=== PATIENT | male | born 1990 | race Hispanic/Latino ===

== ENCOUNTER 2017-03-27 14:08 | Outpatient (CLI) | payer OTHER | END 2017-03-27 14:09 | disposition home or self-care (01) | LOC: HPCALD 14:08 | PROVIDERS: ATTEND Physician Assistant | DX: L03.115 Cellulitis of right lower limb (principal) | CPT/HCPCS: 87070; 87205 ==

== ENCOUNTER 2020-11-24 11:15 | Emergency (ER) | payer OTHER ==
[2020-11-24 11:55] LABS: #Basophils 0.1 thou/uL (0.0-0.2); #Lymphocytes 0.9 thou/uL (1.20-3.40); #Monocytes 0.6 thou/uL (0.11-0.59); #Neutrophils 5.5 thou/uL (1.40-6.50); %Basophils 0.8 % (0.0-1.0); %Eosinophils 0.7 % (0.0-10.0); %Lymphocytes 13.3 % (21.0-51.0); %Neutrophils 77.2 % (42.0-75.0); Hemoglobin 16.9 g/dL (14.0-18.0); Mean Corpuscular HGB CONC 33.5 g/dL (32.0-36.0); Mean Corpuscular Hemoglobin 28.9 pg (27.0-31.0); Mean Corpuscular Volume 86.4 fL (78.0-98.0); Platelet Count 141 thou/uL (130-400); RBC Distribution Width 11.8 % (11.5-14.5); Red Blood Cell (RBC) Count 5.83 mill/uL (4.70-6.10); White Blood Cell (WBC) Count 7.1 thou/uL (4.8-10.8)
[2020-11-24 12:14] LABS: AST (SGOT) 20 U/L (5-34); Albumin 4.6 g/dL (3.5-5.0); Alkaline Phosphatase 83 U/L (40-110); Anion Gap 15 mmol/L (10-20); BUN (Urea Nitrogen) 12 mg/dL (8.9-20.6); Bilirubin, Total 0.8 mg/dL (0.2-1.2); Calc. Creatinine Clearance 0 mL/min (70-130); Calcium 9.5 mg/dL (7.8-10.44); Globulin 3.3 g/dL (2.4-3.5); Glucose 102 mg/dL (70-105); Protein, Total 7.9 g/dL (6.0-8.3)
[2020-11-24] MEDS ORDERED: cefTRIAXone\\ROCEPHIN 1 GM VIAL ONE (12:14)
[2020-11-24] MEDS ORDERED: Sodium Chloride 0.9% 100 ML ONE (12:15)
[2020-11-24 12:40] LABS: ALT (SGPT) 39 U/L (8-55); Carbon Dioxide 26 mmol/L (22-29); Chloride 100 mmol/L (98-107); Potassium 4.1 mmol/L (3.5-5.1); Sodium 137 mmol/L (136-145)
[2020-11-24] MEDS ORDERED: Acetaminophen 500 MG TAB ONE (14:13)
[2020-11-24] MEDS ORDERED: Ibuprofen 800 MG TAB ONE (15:07)
--- NOTE | 2020-11-24 15:20 | RAD ---
RIGHT KNEE FOUR VIEWS: 11/24/20 Some soft tissue swelling is seen anteriorly in the infrapatellar region. No actual fracture or dislo cation was seen. Because of the positioning of the leg, I cannot accurately determine if the patella is subluxed or not. There does not appear to be any joint effusion. IMPRESSION: Infrapatellar soft tissue swelling. See above. POS: HOME
== END 2020-11-24 17:00 | disposition home or self-care (01) ==
LOC: BURERS 11:15
DX: L03.115 Cellulitis of right lower limb (principal); Z79.899 Other long term (current) drug therapy
CPT/HCPCS: 36415; 80053; 83605; 85025; 87040; 87070; 87077; 87149; 87186; 87205; 93005; 96365; J0696; J3490

== ENCOUNTER 2020-11-25 12:09 | Emergency (ER) | payer OTHER ==
[2020-11-25] MEDS ORDERED: Vancomycin 1.5 GRAM/300 ML BAG ONE (12:36)
[2020-11-25] MEDS ORDERED: Acetaminophen 325 MG TAB ONE (12:36)
[2020-11-25 13:00] LABS: Bilirubin Negative (Negative); Blood, Urine Negative (Negative); Clarity Clear (Clear); Glucose, Urine (Dipstick) Negative (Negative); Ketone, Urine 40 mg/dL (Negative); Leukocyte Negative (Negative); Nitrite Negative (Negative); Protein, Urine (Dipstick) 30 mg/dL (Neg-Trace); pH, Urine 8.5 (5.0-9.0)
[2020-11-25 13:04] LABS: Hemoglobin 14.5 g/dL (14.0-18.0); Mean Corpuscular HGB CONC 34.6 g/dL (32.0-36.0); Mean Corpuscular Hemoglobin 29.3 pg (27.0-31.0); Mean Corpuscular Volume 84.7 fL (78.0-98.0); Mean Platelet Volume 6.9 fL (7.4-10.4); Platelet Count 136 thou/uL (130-400); RBC Distribution Width 11.7 % (11.5-14.5); Red Blood Cell (RBC) Count 4.93 mill/uL (4.70-6.10); White Blood Cell (WBC) Count 4.7 thou/uL (4.8-10.8)
[2020-11-25] MEDS ORDERED: Lidocaine 1% PF 5 ML VIAL ONE (13:05)
[2020-11-25 13:06] LABS: ALT (SGPT) 39 U/L (8-55); AST (SGOT) 22 U/L (5-34); Albumin 3.9 g/dL (3.5-5.0); Alkaline Phosphatase 66 U/L (40-110); Anion Gap 14 mmol/L (10-20); BUN (Urea Nitrogen) 12 mg/dL (8.9-20.6); Bilirubin, Total 0.5 mg/dL (0.2-1.2); Calc. Creatinine Clearance 0 mL/min (70-130); Calcium 8.4 mg/dL (7.8-10.44); Carbon Dioxide 22 mmol/L (22-29); Chloride 102 mmol/L (98-107); Globulin 2.7 g/dL (2.4-3.5); Glucose 120 mg/dL (70-105); Potassium 3.4 mmol/L (3.5-5.1); Protein, Total 6.6 g/dL (6.0-8.3); Sodium 135 mmol/L (136-145)
[2020-11-25] MEDS ORDERED: Lidocaine 1% w/Epinephrine 1:100K 20 ML VIAL ONE (13:06)
[2020-11-25 13:12] LABS: RBC/HPF None Seen HPF (0-3); Squamous Epithelial 0-3 HPF (0-3); WBC/HPF None Seen HPF (0-3)
[2020-11-25 13:13] LABS: Bacteria/HPF None Seen HPF (None Seen)
[2020-11-25 13:20] LABS: Band 3 % (5-11); Lymphocytes 23 % (21-51); MDiff Complete? YES; Monocytes 4 % (0-10); Neutrophil 70 % (42-75)
[2020-11-25 16:29] LABS: SARS-CoV-2 NAA Rapid Test Not Detected (NotDetected)
--- NOTE | 2020-11-25 16:56 | RAD ---
PORTABLE CHEST: 11/25/20 An AP portable film at 1248 shows a normal sized heart and clear lungs. There was no sign of pneumoni a or other thoracic cause for fever. The mediastinum appears normal and the trachea is midline. IMPRESSION: No acute findings. POS: HOME
[2020-11-25 21:36] LABS: RBC Count-Automated (BF) 0 /cu.mm; WBC/Nucleated-Auto (BF) 20 uL
[2020-11-25 21:37] LABS: BF Color Colorless; Body Fluid Source Synovial Fluid; Clarity Hazy (Clear); Tube # EDTA
== END 2020-11-25 16:53 | disposition short-term general hospital (02) ==
LOC: BURERS 12:09
DX: L03.115 Cellulitis of right lower limb (principal); Z79.899 Other long term (current) drug therapy
CPT/HCPCS: 0240U; 20610; 71045; 80053; 81003; 81015; 83605; 85025; 85060; 87040; 87070; 87205; 89051; 89060; 93005; 96365; J3370

== ENCOUNTER 2025-10-28 22:30 | Emergency (ER) | payer MEDICAID, OTHER ==
[~2025-10-28 22:30] MED LIST: Iopamidol 370 76% 100 ML VIAL ONE
[2025-10-28 23:14] LABS: #Basophils 0.1 thou/uL (0.0-0.2); #Eosinophils 0.5 thou/uL (0.0-0.7); #Lymphocytes 3.2 thou/uL (1.20-3.40); #Monocytes 0.9 thou/uL (0.11-0.59); #Neutrophils 6.3 thou/uL (1.40-6.50); %Basophils 1.1 % (0.0-1.0); %Eosinophils 4.5 % (0.0-10.0); %Lymphocytes 29.0 % (21.0-51.0); %Monocytes 8.4 % (0.0-10.0); %Neutrophils 57.0 % (42.0-75.0); Hematocrit 47.7 % (42.0-52.0); Hemoglobin 15.9 g/dL (14.0-18.0); Mean Corpuscular Hemoglobin 29.6 pg (27.0-31.0); Mean Corpuscular Volume 88.9 fl (78.0-98.0); Platelet Count 240 10x3/uL (130-400); Red Blood Cell (RBC) Count 5.37 mill/uL (4.70-6.10); White Blood Cell (WBC) Count 11.0 10x3/uL (4.8-10.8)
[2025-10-28] MEDS ORDERED: Ketorolac Tromethamine 30 MG (1 mL) VIAL ONE (23:18)
[2025-10-28] MEDS ORDERED: Ondansetron PF 4 MG/2 ML Vial ONE (23:18)
[2025-10-28 23:30] LABS: ALT (SGPT) 27 U/L (Less than 45); AST (SGOT) 19 U/L (11-34); Albumin 4.7 g/dL (3.1-4.5); Alkaline Phosphatase 90 U/L (40-110); Anion Gap 15 mmol/L (10-20); BUN (Urea Nitrogen) 24 mg/dL (8.9-20.6); Bilirubin, Total 0.2 mg/dL (0.3-1.2); Calc. Creatinine Clearance 0 mL/min (70-130); Calcium 9.0 mg/dL (7.8-10.44); Carbon Dioxide 27 mmol/L (22-29); Chloride 102 mmol/L (98-107); Globulin 2.6 g/dL (2.4-3.5); Glucose 103 mg/dL (70-105); Lipase 60 U/L (8-78); Potassium 3.6 mmol/L (3.5-5.1); Sodium 140 mmol/L (136-145)
== END 2025-10-29 00:36 | disposition home or self-care (01) ==
LOC: BURERS 22:30
DX: K59.00 Constipation, unspecified (principal)
CPT/HCPCS: 74177; 80053; 82274; 83690; 85025; 96374; 96375; J1885; J2405; Q9967